=== PATIENT | male | born 2000 | race Caucasian/White ===

== ENCOUNTER 2020-06-18 14:35 | Emergency (ER) | payer BC, SELFPAY ==
--- NOTE | 2020-06-18 14:42 | ED.MALEGU ---
HPI - Male Genitourinary General Chief complaint: Urogenital-Male Stated complaint: URINARY URGENCY Time Seen by Provider: 06/18/20 14:50 Source: patient and RN notes reviewed Mode of arrival: ambulatory Limitations: no limitations History of Present Illness HPI Narrative: 20-year-old male presents with concern for 1 week history of urine retention. He denies dysuria, hematuria. Denies penile discharge. Reports he is not sexually active. He denies fever, flank pain, testicular redness, swelling, pain. MD Complaint: other (Urine retention) Related Data Home Medications Medication Instructions Recorded Confirmed No Home Medications 06/18/20 06/18/20 Allergies Allergy/AdvReac Type Severity Reaction Status Date / Time No Known Allergies Allergy Verified 06/18/20 14:44 Review of Systems Review of Systems: Narrative: CONSTITUTIONAL: Denies malaise, chills, sweats, or fever. CARDIOVASCULAR: Denies chest pain, palpitations RESPIRATORY: Denies cough or dyspnea. GASTROINTESTINAL: Denies abdominal pain, nausea, vomiting, diarrhea, bloody, or mucous stools. GENITOURINARY: Denies dysuria or hematuria. Reports urine retention MUSCULOSKELETAL: Denies back pain or myalgia. All systems reviewed & are unremarkable except as noted in HPI and below PMFSH Comments At time of signature, agree with nursing past medical, surgical, social and family history. There is no relevant family history pertinent to the presenting complaint Exam Narrative: Exam Narrative: GENERAL: Well-appearing, well-nourished, and in no acute distress. HEAD: Normocephalic. EYES: PERRLA, conjunctivae clear. NECK: Supple. No lymphadenopathy CHEST: Clear to auscultation. No respiratory distress. HEART: Regular rate and rhythm. No murmur heard. Normal peripheral pulses. ABDOMEN: Soft, nontender upon palpation, bladder distended, normal active bowel sounds, no palpable or pulsatile masses, no guarding. No CVA tenderness : Left groin tenderness SKIN: Warm, dry, no rash. NEURO: Alert and oriented x3. PSYCH: Normal mood and affect Course Course Emergency Course: Patient is aware of, understands and agrees to reasons to be seen in the emergency department. Patient agrees to proceed directly to the emergency department. Portions of this record may have been created with voice recognition software Vital Signs Vital signs: Reviewed. Patient sent to the emergency room, unable to discuss elevated blood pressure Transfer Transfered to: [facility] Transportation: Other (Private vehicle) Transfer rationale: Urine retention, groin tenderness Accepting physician: Micthel Ravi comments: Patient stable for transfer via private vehicle MDM - Male Genitourinary MDM Narrative Medical decision making narrative: Exam findings and UA show no acute concerns or changes; patient is non-toxic appearing and is in no distress. Patient is appropriate for outpatient treatment and follow-up. Differential Diagnosis Differential diagnosis: Likely urinary tract infection, urethritis, epididymitis and prostatitis Lab Data Attestation: I reviewed the patient's lab results. Critical Care Time Critical Care Time Critical Care Time: No Discharge Plan Discharge Clinical Impression: Left groin pain, Acute retention of urine Patient Disposition: Acute Care Hospital Condition: Stable Additional Instructions: Your blood pressure was elevated above 120/[address] [facility]. This puts you above the threshold for follow up. Please schedule a follow up visit with your personal physician as soon as possible, for further evaluation and treatment. Even blood pressure exceeding 120/80 may indicate pre-hypertension. Prescriptions: No Action No Home Medications RF: 0 Follow-up/Referrals: Vivian Thompson MD [Primary Care Provider] - Time of Disposition: 15:06
[2020-06-18 14:44] VITALS: BP 145/103; PULSE 91; RESP 20; TEMP 36.6; O2SAT 99
== END 2020-06-18 15:09 | disposition short-term general hospital (02) ==
PROVIDERS: Emergency Provider Nurse Practitioner; PCP Pediatrics
DX: R10.32 Left lower quadrant pain (principal); R33.9 Retention of urine, unspecified
CPT/HCPCS: 81003; 99212; G0463

== ENCOUNTER 2020-06-18 15:31 | Emergency (ER) | payer BC, SELFPAY ==
--- NOTE | ~2020-06-18 | CT_ITS ---
EXAMINATION: CT abdomen pelvis wo con EXAM DATE: 06/18/2020 18:49 INDICATION: Right groin pain, increased urination. TECHNIQUE: Spiral CT of the abdomen and pelvis was performed without contrast. Axial, coronal and sag ittal images were reviewed. The dose-length product (DLP) for this examination was 643.22 mGy-cm. T he exposure was tailored according to patient size (auto mA exposure control), and iterative reconstr uction (ASIR) was used as additional dose reduction technique. There is no prior study for compariso n. FINDINGS: There is no nephrolithiasis or hydronephrosis. The prostate is unremarkable. The bladder is unremarkable. The liver, spleen, adrenal glands and pancreas are unremarkable. Gallbladder is u nremarkable. No biliary obstruction. There is no retroperitoneal or pelvic lymphadenopathy. The appendix is normal. The stomach and small bowel are unremarkable. There is expected amount of c olonic stool. No free intraperitoneal gas. The heart is normal in size. There are no pericardial or pleural effusions. The lung bases are unremarkable. The bones are unremarkable. IMPRESSION: No nephrolithiasis, hydronephrosis or acute intra-abdominal findings. Reviewed, dictated and finalized at location A. IMPRESSION: No nephrolithiasis, hydronephrosis or acute intra-abdominal finding s.
[2020-06-18 15:58] VITALS: BP 140/86; PULSE 80; RESP 16; TEMP 36.4; O2SAT 100
[2020-06-18 16:33] LABS: Add Urine Microscopic? YES; Appearance Urine Clear (Clear); Bilirubin Urine Negative (Negative); Blood Urine 1+ (Negative); Color Urine Yellow (Yellow); Glucose Urine UA Negative (Negative); Ketones Urine Negative (Negative); Leukocyte Esterase Ur Negative LEU/UL (Negative); Mucus Urine Rare /lpf; Nitrate Urine Negative (Negative); Protein Urine Negative (Negative); Specific Grav Ur 1.023 (1.001-1.035); Urobilinogen Urine Negative mg/dL (<2.0); WBC Urine 0-3 /hpf
[2020-06-18 17:35] LABS: Basophils Percent Auto 0.4 % (0.2-1.2); Eosinophils Absolute Auto 0.1 K/mm3 (0-0.3); Eosinophils Percent Auto 1.2 % (0-4.4); Hematocrit 44.3 % (42.0-52.0); Hemoglobin 15.8 g/dL (14.0-18.0); Immature Granulocyte Absolute 0.03 K/mm3 (0.00-0.031); Immature Granulocyte Percent A 0.3 % (0-0.5); Lymphocytes Absolute Auto 2.29 K/mm3 (0.9-3.2); Lymphocytes Percent Auto 25.6 % (18.3-44.2); Mean Corpuscular HGB Conc 35.7 g/dl (32-36); Mean Corpuscular Hemoglobin 30.9 pg (26-34); Mean Corpuscular Volume 86.5 fl (80-100); Mean Platelet Volume 8.7 fl (7.4-10.4); Monocytes Absolute Auto 0.6 K/mm3 (0.1-0.6); Monocytes Percent Auto 7.1 % (2.6-8.5); Neutrophils Absolute Auto 5.8 K/mm3 (1.3-6.7); Neutrophils Percent Auto 65.4 % (45.5-73.1); Platelet Count Result 307 k/mm3 (150-375); Red Blood Count 5.12 M/mm3 (4.6-6.20); Red Cell Distribution Width 11.9 % (11.5-14.5); White Blood Count 8.9 K/mm3 (4.5-10.0)
[2020-06-18 17:47] LABS: Alanine Aminotransferase 77 U/L (4-50); Albumin Level 4.8 g/dL (3.5-5.1); Alkaline Phosphatase 72 U/L (38-126); Anion Gap 11 mmol/L (8-16); Aspartate Amino Transferase 42 U/L (17-59); Bilirubin,Total 0.7 mg/dL (0.2-1.3); Blood Urea Nitrogen 20 mg/dL (9-20); Calcium 10.1 mg/dL (8.4-10.2); Carbon Dioxide 27 mmol/L (22-30); Chloride 101 mmol/L (98-107); Estimated CRCL calculation 119 ml/min; Estimated Glomerular Filt Rate > 60; Glucose 98 mg/dL (75-110); Potassium 4.1 mmol/L (3.4-5.0); Sodium 139 mmol/L (137-145)
[2020-06-18] MEDS: SODIUM CHLORIDE 0.9% IV 1,000 ML 999 ML IV CONT (17:50)
[2020-06-18 17:51] VITALS: BP 141/94; PULSE 91; RESP 16; O2SAT 99
[2020-06-18 19:25] VITALS: BP 124/73; PULSE 76; RESP 14; O2SAT 100
--- NOTE | 2020-06-18 19:48 | ED.GENADULT ---
HPI - General Adult General Chief complaint: Abdominal Pain Stated complaint: URINARY FREQUENCY Time Seen by Provider: 06/18/20 17:04 Source: patient Mode of arrival: ambulatory Limitations: no limitations History of Present Illness HPI narrative: Patient presents with chief complaint of increased urinary frequency over the past week. Patient states today he also noticed some right-sided groin discomfort. Patient states he has not had fever, chills, nausea, vomiting, diarrhea. He has not had any noticeable blood in his urine. He denies burning with urination. He states that he has been able to void but notices it is small amounts but thinks this because he is going more frequently. Patient denies chance for sexually transmitted diseases as he is not at all sexually active. Patient denies history of kidney stones. Patient denies testicular or penile pain, sores or traumas. Related Data Allergies Allergy/AdvReac Type Severity Reaction Status Date / Time sulfamethoxazole Allergy Rash Verified 06/18/20 17:14 [From ] trimethoprim [From ] Allergy Rash Verified 06/18/20 17:14 Review of Systems Review of Systems: Narrative: CONSTITUTIONAL: Denies fever, chills, or sweats. EYES: Denies visual changes, redness, or discharge. ENT: Denies rhinorrhea, congestion, sore throat, or otalgia. CARDIOVASCULAR: Denies chest pain, palpitations, or edema. RESPIRATORY: Denies cough or dyspnea. GASTROINTESTINAL: Denies abdominal pain, nausea, vomiting, or diarrhea. GENITOURINARY: Reports urinary frequency denies dysuria or hematuria. SKIN: Denies rash or itching. MUSCULOSKELETAL: Denies back pain, myalgia, or joint pain NEUROLOGIC: Denies headache, numbness, dizziness, or weakness. PSYCHIATRIC: Denies anxiety or depression. Exam Narrative: Exam Narrative: GENERAL: Well-appearing, well-nourished. HEAD: Normocephalic, atraumatic. EYES: PERRLA and EOMI. ENT: Nares clear, no rhinorrhea or epistaxis. Mucous membranes moist. Oropharynx without tonsillar hypertrophy exudate or other lesions. Bilateral TMs pearly pemberton nonbulging NECK: Supple. No adenopathy or masses. No vertebral tenderness or loss of ROM. CHEST: Clear to auscultation. No respiratory distress. No wheezes rales or rhonchi HEART: Regular rate and rhythm. Normal peripheral pulses. ABDOMEN: Soft, mild tenderness with palpation of right groin, nondistended, normal active bowel sounds. No bruises noted. No trauma, erythema, drainage, ulceration of penis. No tenderness to penis or testicles. No abdominal distention. Patient able to urinate without issue or pain. EXTREMITIES: No acute changes in ROM. No edema. SKIN: Warm, dry, no rash. NEURO: No focal deficits. Alert and oriented x3. PSYCH: Normal mood and affect. Course Vital Signs Vital signs: Vital Signs Temperature 97.6 F 06/18/20 15:58 Pulse Rate 80 06/18/20 15:58 Respiratory Rate 16 06/18/20 15:58 Blood Pressure 140/86 06/18/20 15:58 Pulse Oximetry 100 06/18/20 15:58 Temperature 97.6 F 06/18/20 15:58 Pulse Rate 76 06/18/20 19:25 Respiratory Rate 14 06/18/20 19:25 Blood Pressure 124/73 06/18/20 19:25 Pulse Oximetry 100 06/18/20 19:25 Medical Decision Making MDM Narrative Medical decision making narrative: Patient's lab work, urinalysis and CT are negative. Patient's urine will be sent for culture patient will be put on Macrobid while culture is being performed to rule out urinary tract infection. Patient is adamant that he is not concerned for STDs as he is not at all sexually active. Patient has been resting comfortably at this time. He denies any pain or urinary retention. Patient has been able to urinate throughout his ER visit. Abdomen is still not distended. Patient has not had any discomfort. Patient will be referred to urology for follow-up if symptoms persist. Patient instructed return to emergency department if he has any emergent symptoms. Differential Diag
[2020-06-18 20:16] VITALS: BP 134/82; PULSE 78; RESP 16; TEMP 36.7; O2SAT 99
== END 2020-06-18 20:17 | disposition home or self-care (01) ==
PROVIDERS: Physician Assistant; Emergency Provider Emergency Medicine; PCP Pediatrics
DX: R35.0 Frequency of micturition (principal)
CPT/HCPCS: 36415; 74176; 80053; 81001; 85025; 87086; 87088; 96360; 96361; 99284; J7030

== ENCOUNTER 2023-11-20 19:24 | Emergency (ER) | payer SELFPAY ==
--- NOTE | ~2023-11-20 | CT_ITS ---
EXAMINATION: CT abdomen pelvis w con DATE: 11/20/2023 20:27 INDICATION: vomiting/ concern for hernia/ obstruction TECHNIQUE: Computed tomography (CT) of the abdomen and pelvis was performed with 100 mL Omnipaque-350 intravenous contrast. Automated exposure control and iterative reconstruction technique were employe d. The dose-length product was 518.08 mGy-cm. COMPARISON: 06/18/2020. FINDINGS: Lower thorax: Unremarkable Liver: Normal. Biliary/Gallbladder: Gallbladder is normal. No bile duct dilation. Pancreas: No mass or duct dilation. Spleen: Normal. Adrenals:No mass. Kidneys: No suspicious mass, obstructing stone, or hydronephrosis. GI tract: No small or large bowel dilation. Normal appendix. Mesentery/Peritoneum: No ascites, mass, or free air. Retroperitoneum: No mass. Pelvis: Pelvic organs are within normal limits. Soft Tissues: Small uncomplicated fat-containing umbilical and bilateral inguinal hernias Bones: No acute osseous finding. IMPRESSION: No acute abdominopelvic process detected Reviewed, dictated and finalized at location K.
[2023-11-20 19:26] VITALS: BP 143/99; PULSE 76; RESP 18; TEMP 36.9; O2SAT 100
--- NOTE | 2023-11-20 19:44 | ED.GENADULT ---
HPI - General Adult General Chief complaint: Nausea/Vomiting/Diarrhea Stated complaint: Vomiting/throat difficulty Time Seen by Provider: 11/20/23 19:32 History of Present Illness HPI narrative: Patient is a 23-year-old male who presents to the emergency department this evening complaining of vomiting on and off for the past 2 weeks. Patient states that approximately 2 weeks ago he noticed that sometimes when he almost immediately after he vomits almost everything that he eats. Symptoms were initially intermittent and patient had a spans of 3 days where he would be asymptomatic. However, recently, he has noticed that the vomiting of frequencies have increased and now after almost every meal he vomits. Patient states that he feels pressure in his throat but denies any nausea precipitating the vomiting episodes. The patient's mother who is in the medical field is present at bedside and is concerned that he may have a hiatal hernia. Patient recently started dropped approximately 2-3 months ago which requires heavy lifting and she was wondering if that could be the cause of his symptoms. Patient denies any recent contacts at home, denies any diarrhea, any bloody or bilious emesis, and states that the vomit is only induced after eating meals and not after drinking fluids. Patient is able to keep down oral fluid intake. Denies any fevers or chills at home, any chest pain, shortness of breath, abdominal pain, dysuria or hematuria, constipation or diarrhea, melena or hematochezia. There are no other modifying, alleviating, or precipitating factors at this time. Related Data Allergies Allergy/AdvReac Type Severity Reaction Status Date / Time sulfamethoxazole Allergy Rash Verified 11/20/23 19:30 [From ] trimethoprim [From ] Allergy Rash Verified 11/20/23 19:30 Review of Systems Review of Systems: All systems are reviewed and are negative unless stated otherwise in the HPI. PMFSH Comments Patient denies any significant past medical or surgical history, denies any pertinent family history and denies any illicit drug use or alcohol abuse. Exam Narrative: General: Alert, awake, afebrile, in no acute distress. HEENT: PERRL, no rhinorrhea, no post nasal drip, oropharynx clear. Neck: Trachea midline, no JVD, no lymphadenopathy. Cardiovascular: Regular rate and rhythm, no murmurs, rubs or gallops, no peripheral edema. Respiratory: Clear to auscultation bilaterally, no tachypnea, no wheezing, no rhonchi, no rubs, no respiratory distress. Abdomen: Soft, nontender, nondistended, no rebound, no guarding, no peritoneal signs. Musculoskeletal: No joint swelling or deformity, normal muscle tone. Skin: No rashes or petechia, no signs of infection. Psychiatric: Alert and oriented, normal behavior and judgment for situation. Neurological: Alert and oriented to person, place, and time. Follows all commands. No focal deficits, speech is clear and fluent. Course Vital Signs Vital signs: Vital Signs Temperature 98.4 F 11/20/23 19:26 Pulse Rate 76 11/20/23 19:26 Respiratory Rate 18 11/20/23 19:26 Blood Pressure 143/99 H 11/20/23 19:26 Pulse Oximetry 100 11/20/23 19:26 Temperature 98.4 F 11/20/23 19:26 Pulse Rate 69 11/20/23 20:01 Respiratory Rate 20 11/20/23 20:01 Blood Pressure 137/81 11/20/23 20:01 Pulse Oximetry 98 11/20/23 20:01 Medical Decision Making MDM Narrative Medical decision making narrative: The patient was evaluated by myself in the emergency department. History is obtained from patient who is an independent historian and physical exam was performed. External medical records were reviewed at this time. IV was established and pertinent tests were ordered. Patient was administered 4 mg IV Zofran and 1 L IV fluid bolus with normal saline. Laboratory results obtained revealing no acute process. Imaging studies obtained included CT abdomen and pelvis with IV contrast
[2023-11-20 19:46] VITALS: BP 140/80; PULSE 83; RESP 15; O2SAT 100
[2023-11-20] MEDS: ONDANSETRON INJ 4 MG/2 ML VIAL IV PUSH (19:48)
[2023-11-20] MEDS: SODIUM CHLORIDE 0.9% IV 1,000 ML 999 ML IV CONT (19:48)
[2023-11-20 19:53] LABS: Basophils Percent Auto 0.5 % (0.2-1.2); Eosinophils Absolute Auto 0.2 K/mm3 (0-0.3); Eosinophils Percent Auto 2.8 % (0-4.4); Hematocrit 47.7 % (42.0-52.0); Hemoglobin 16.7 g/dL (14.0-18.0); Immature Granulocyte Absolute 0.02 K/mm3 (0.00-0.031); Immature Granulocyte Percent A 0.3 % (0-0.5); Lymphocytes Absolute Auto 2.26 K/mm3 (0.9-3.2); Lymphocytes Percent Auto 28.6 % (18.3-44.2); Mean Corpuscular Hemoglobin 30.4 pg (26-34); Mean Corpuscular Volume 86.7 fl (80-100); Mean Platelet Volume 8.8 fl (7.4-10.4); Monocytes Absolute Auto 0.5 K/mm3 (0.1-0.6); Monocytes Percent Auto 6.2 % (2.6-8.5); Neutrophils Absolute Auto 4.9 K/mm3 (1.3-6.7); Neutrophils Percent Auto 61.6 % (45.5-73.1); Platelet Count Result 281 k/mm3 (150-375); Red Cell Distribution Width 12.2 % (11.5-14.5); White Blood Count 7.9 K/mm3 (4.5-10.0)
[2023-11-20 20:01] VITALS: BP 137/81; PULSE 69; RESP 20; O2SAT 98
[2023-11-20 20:04] LABS: Alanine Aminotransferase 39 U/L (6-50); Albumin Level 4.8 g/dL (3.5-5.1); Alkaline Phosphatase 80 U/L (38-126); Anion Gap 8 mmol/L (8-16); Aspartate Amino Transferase 30 U/L (17-59); Bilirubin,Total 0.9 mg/dL (0.2-1.3); Blood Urea Nitrogen 12 mg/dL (9-20); Carbon Dioxide 29 mmol/L (22-30); Chloride 104 mmol/L (98-107); Estimated CRCL calculation 116 ml/min; Estimated Glomerular Filt Rate > 60; Glucose 97 mg/dL (65-110); Lipase 37 U/L (23-300); Potassium 3.8 mmol/L (3.4-5.0); Sodium 141 mmol/L (137-145)
[2023-11-20 20:29] LABS: Influenza A QL RT-PCR Negative (Negative); Influenza B QL RT-PCR Negative (Negative); RSV RNA, RT-PCR Negative (Negative); SARS-CoV-2 RNA PCR Negative (Negative)
[2023-11-20 21:12] VITALS: BP 137/81; PULSE 71; RESP 16; O2SAT 100
== END 2023-11-20 21:13 | disposition home or self-care (01) ==
PROVIDERS: Emergency Provider Emergency Medicine; PCP Pediatrics
DX: R11.10 Vomiting, unspecified (principal); Z20.822 Contact with and (suspected) exposure to COVID-19
CPT/HCPCS: 36415; 74177; 80053; 82248; 83690; 83735; 85025; 87637; 96374; 96375; 99284; J2405; J7030; Q9967

== ENCOUNTER 2024-04-04 07:38 | Emergency (ER) | payer SELFPAY ==
[2024-04-04 07:45] VITALS: BP 143/88; PULSE 70; RESP 16; TEMP 36.8; O2SAT 97
--- NOTE | 2024-04-04 08:49 | ED.EAR ---
HPI - Ear Problem General Chief complaint: Ear Stated complaint: ear pain Time Seen by Provider: 04/04/24 07:51 History of Present Illness HPI Narrative: 24-year-old male presents to the emergency department for evaluation for infection of his right ear. Patient does have a longstanding history of cerumen impaction and discharge from his ear. Patient began noticing redness and swelling of his right ear this started last night. Patient denies any pain. Related Data Allergies Allergy/AdvReac Type Severity Reaction Status Date / Time sulfamethoxazole Allergy Rash Verified 04/04/24 07:38 [From ] trimethoprim [From ] Allergy Rash Verified 04/04/24 07:38 Review of Systems Review of Systems: All systems reviewed & are unremarkable except as noted in HPI and below Exam Narrative: APPEARANCE: Well appearing, no pain, no distress, well-nourished. HEAD: normocephalic, atraumatic. EYES: PERRLA/EOMI, conjunctivae clear. NOSE: Normal no drainage EARS: Erythema of right ear externally, cerumen impaction with irritation of external ear canal, no posterior auricular tenderness and no mastoid tenderness to palpation THROAT: Pharynx clear, no exudate. NECK: Supple. No adenopathy, no masses. RESPIRATORY: Airway patent, respirations nonlabored. Clear to auscultation bilaterally, no rales, rhonchi, wheezing. CARDIOVASCULAR: Regular rate and rhythm without murmurs rubs or gallops. ABDOMINAL: Soft, nontender, nondistended, normal bowel sounds MUSCULOSKELETAL: Moves all extremities. Strength/ROM intact, No edema, No calf tenderness. NEURO: Alert. Cranial nerves II through XII intact. Grossly intact SKIN: Warm, dry. Normal Color Course Course Emergency Course: Patient was started on antibiotics and discharged home with follow-up with ENT Vital Signs Vital signs: Vital Signs Temperature 98.2 F 04/04/24 07:45 Pulse Rate 70 04/04/24 07:45 Respiratory Rate 16 04/04/24 07:45 Blood Pressure 143/88 H 04/04/24 07:45 Pulse Oximetry 97 04/04/24 07:45 Temperature 98.2 F 04/04/24 07:45 Pulse Rate 68 04/04/24 09:02 Respiratory Rate 15 04/04/24 09:02 Blood Pressure 140/75 04/04/24 09:02 Pulse Oximetry 99 04/04/24 09:02 Medical Decision Making MDM Narrative Medical decision making narrative: 24-year-old male presents emergency department for evaluation for right ear pain. Patient was started on antibiotics for concern for cellulitis of the right ear. This is not an acute issue for this patient so patient is being encouraged to follow-up with ENT. Patient was started on clindamycin the emergency department and discharged home on clindamycin. Patient and family are comfortable with plan for discharge and follow-up. Patient did have redness and erythema of the right ear, no evidence of otitis externa and patient had no posterior auricular or mastoid tenderness. Concern for mastoiditis Differential Diagnosis Differential Diagnosis: Otitis media, otitis externa, cellulitis, mastoiditis Vital Signs Vital Signs: Vital Signs Temperature 98.2 F 04/04/24 07:45 Pulse Rate 70 04/04/24 07:45 Respiratory Rate 16 04/04/24 07:45 Blood Pressure 143/88 H 04/04/24 07:45 Pulse Oximetry 97 04/04/24 07:45 Temperature 98.2 F 04/04/24 07:45 Pulse Rate 68 04/04/24 09:02 Respiratory Rate 15 04/04/24 09:02 Blood Pressure 140/75 04/04/24 09:02 Pulse Oximetry 99 04/04/24 09:02 Discharge Plan Discharge Clinical Impression: Otitis externa, Cellulitis Patient Disposition: Home, Self-Care Condition: Stable Instructions: Antibiotic Form, Cellulitis (ED) Additional Instructions: Antibiotic as directed until completed. Tylenol and ibuprofen for fever or for pain control. Have close follow-up with Otolaryngology/ENT. If you have any worsening symptoms please call or return to the emergency department. Prescriptions: New clindamycin HCl 300 mg cap
[2024-04-04] MEDS: CLINDAMYCIN HCL 150 MG CAP 300 MG PO (08:58)
[2024-04-04 09:02] VITALS: BP 140/75; PULSE 68; RESP 15; O2SAT 99
== END 2024-04-04 09:02 | disposition home or self-care (01) ==
PROVIDERS: Emergency Provider Emergency Medicine
DX: H60.91 Unspecified otitis externa, right ear (principal); H60.11 Cellulitis of right external ear
CPT/HCPCS: 99283; A9270